=== PATIENT | female | born 1995 | race Caucasian/White ===

== ENCOUNTER 2019-06-25 18:25 | Emergency (ER) | payer OTHER, BC, SELFPAY ==
[2019-06-25 18:35] VITALS: BP 131/64; PULSE 91; RESP 16; TEMP 36.9; O2SAT 99
--- NOTE | 2019-06-25 20:02 | ED.ABDPAIN ---
HPI - Abdominal Pain General Chief Complaint: Abdominal Pain Stated Complaint: Abd pain/nausea/diarrhea Time Seen by Provider: 06/25/19 20:03 Source: patient and RN notes reviewed Mode of arrival: ambulatory Limitations: no limitations History of Present Illness HPI narrative: 23 year old female who presents to [facility] with complaints of nausea, vomiting, diarrhea, and abdominal pain since Tuesday. Patient states that diarrhea has resolved and she just has cramping sensation to mid abdomen region now but continues to have nausea, decrease in appetite, and some dizziness. Patient also states some cold symptoms of nasal drainage and mild cough, denies any recent fever chills or sweats, has taken some Tylenol for her generalized aching feeling. Decline offer of flu swab. MD elicited complaint: abdominal pain Pertinent past history: none Onset (ago): day(s) (4) Pain Consistency: intermittent Location: diffuse (mid abdomen) Severity: moderate Pain scale (0-10): 6 Quality: cramping and aching (generalized) Radiation: none and epigastric (mid) Migration to: no migration Exacerbating factors: eating Relieving factors: nothing Associated symptoms: nausea, vomiting, diarrhea, anorexia and other (dizzy) Treatments prior to arrival: other (Tylenol) Related Data Hx Last Menstrual Period: IUD Patient : No Home Medications Medication Instructions Recorded Confirmed levonorgestrel [Mirena] 1 device INTRAUTERINE ONCE 06/11/19 06/11/19 Allergies Allergy/AdvReac Type Severity Reaction Status Date / Time amoxicillin Allergy Unknown Skin Verified 07/22/17 21:20 Reaction ibuprofen Allergy Unknown Skin Verified 07/22/17 21:20 Reaction nickel Allergy Unknown Skin Verified 07/22/17 21:20 Reaction Review of Systems Review of Systems: Narrative: CONSTITUTIONAL:Low grade fevers chills, or sweats. EYES: Denies visual changes, redness, or discharge. ENT: positive rhinorrhea, congestion, no sore throat, or otalgia. CARDIOVASCULAR: Denies chest pain, palpitations, or edema. RESPIRATORY: positive cough no dyspnea. GASTROINTESTINAL: Positive mid abdominal pain, nausea, vomiting, or diarrhea. GENITOURINARY: Denies dysuria or hematuria. SKIN: Denies rash or itching. MUSCULOSKELETAL: Denies back pain, joint pain,positive for body aches NEUROLOGIC: Denies headache, numbness, or weakness.some dizziness PSYCHIATRIC: Denies anxiety or depression. PMFSH Surgical History Surgical History (Updated 06/29/19 @ 12:08 by Lucero Mukherjee NP) History of appendectomy History of tonsillectomy Family History Family History Father Hypertension Mother Hypertension Grandparent Family history of Parkinson's disease Carcinoma of colon Other Diabetes mellitus Family history of cardiovascular disease Social History Social History Smoking status: Smoker, status unknown Alcohol intake: never Comments At time of signature, agree with nursing past medical, surgical, social and family history. There is no relevant family history pertinent to the presenting complaint Exam Narrative: Exam Narrative: GENERAL: Well-appearing, well-nourished, and in no acute distress. HEAD: Normocephalic, atraumatic. EYES: PERRLA and EOMI. ENT: Nares light red clear rhinorrhea no epistaxis. Mucous membranes moist.TM's normal with good light reflex, throat pink with no swelling or exudate NECK: Supple.no lymphadenopathy CHEST: Clear to auscultation. No respiratory distress.dry cough SAO2 99% on room air. HEART: Regular rate and rhythm. No murmur heard. Normal peripheral pulses. ABDOMEN: Soft, nontender to palpation no migration of pain, nondistended, normal active bowel sounds. EXTREMITIES: Normal range of motion. No edema. SKIN: Warm, dry, no rash. NEURO: No focal deficits. Alert and oriented x3. Course Vital Signs Vital signs:
== END 2019-06-25 20:22 | disposition home or self-care (01) ==
PROVIDERS: Emergency Provider Registered Nurse
DX: K52.9 Noninfective gastroenteritis and colitis, unspecified (principal); B34.9 Viral infection, unspecified
CPT/HCPCS: 99213; G0463

== ENCOUNTER → 2020-11-14 11:03 | Outpatient (CLI) | payer MEDICAID, SELFPAY ==
[2020-11-14 19:12] LABS: SARS-CoV-2 RNA PCR Negative
== END ==
PROVIDERS: PCP Family Medicine; Visit Provider Physician Assistant
DX: Z20.822 Contact with and (suspected) exposure to COVID-19 (principal); R05 Cough
CPT/HCPCS: C9803; U0003; U0005

== ENCOUNTER 2020-11-24 15:44 | Emergency (ER) | payer MEDICAID, SELFPAY ==
[2020-11-24 16:46] VITALS: BP 105/85; PULSE 94; RESP 18; TEMP 36.3; O2SAT 100
[2020-11-24 20:06] VITALS: BP 138/72; PULSE 60; RESP 18
--- NOTE | 2020-11-24 20:30 | ED.GENADULT ---
HPI - General Adult General Chief complaint: Unspecified Stated complaint: feels sick for 2 weeks. Covid tested negative. Time Seen by Provider: 11/24/20 19:42 Source: patient, RN notes reviewed and old records reviewed Mode of arrival: ambulatory Limitations: no limitations History of Present Illness HPI narrative: Patient is a 24-year-old female who presents to emergency department for evaluation of congestion sore throat ear pain that has been present now for 3 weeks patient saw primary care for this and was placed on 10 days of doxycycline still has 5 days left had outpatient blood work by primary care which was unremarkable also had a negative Covid test. Patient continues to have fatigue and sore throat and ear pain is her primary symptoms. Denies any vomiting diarrhea urinary symptoms or vaginal complaints. Has been taking Tylenol and doxycycline no other medications. Denies sick contacts. Presents in no distress. Related Data Home Medications Medication Instructions Recorded Confirmed levonorgestrel [Mirena] 1 device INTRAUTERINE ONCE 06/11/19 11/14/20 Allergies Allergy/AdvReac Type Severity Reaction Status Date / Time amoxicillin Allergy Unknown Skin Verified 11/14/20 09:52 Reaction ibuprofen Allergy Unknown Skin Verified 11/14/20 09:52 Reaction nickel Allergy Unknown Skin Verified 11/14/20 09:52 Reaction Review of Systems Review of Systems: All systems reviewed & are unremarkable except as noted in HPI and below PMFSH Surgical History Surgical History History of appendectomy History of tonsillectomy Family History Family History Father Hypertension Mother Hypertension Grandparent Family history of Parkinson's disease Carcinoma of colon Other Diabetes mellitus Family history of cardiovascular disease Social History Social History Smoking status: Current every day smoker Alcohol intake: never Gender identity (if verbalized by the patient): Female Exam Narrative: Exam Narrative: GENERAL: Well-appearing, well-nourished, and in no acute distress. HEAD: Normocephalic, atraumatic. EYES: PERRLA and EOMI. ENT: Nares clear, no rhinorrhea or epistaxis. Mucous membranes moist. Oropharynx without tonsillar hypertrophy exudate or other lesions. Right TM nonbulging nonerythematous there is cerumen in the canal. Left TM normal nonerythematous nonbulging NECK: Supple. No adenopathy or masses. CHEST: Clear to auscultation. No respiratory distress. No wheezes rales or rhonchi HEART: Regular rate and rhythm. No murmur heard. EXTREMITIES: Normal range of motion. No edema. SKIN: Warm, dry, no rash. NEURO: No focal deficits. Alert and oriented x3. Cranial nerves II through XII grossly intact PSYCH: Normal mood and affect. Course Course Emergency Course: Patient seen in the emergency department nonill appearing nontoxic no emesis no distress will be discharged with outpatient follow-up with primary care for reevaluation provided with reasons to return and felt appropriate for outpatient reevaluation patient agreeing with this plan Vital Signs Vital signs: Vital Signs Temperature 97.4 F L 11/24/20 16:46 Pulse Rate 94 11/24/20 16:46 Respiratory Rate 18 11/24/20 16:46 Blood Pressure 105/85 11/24/20 16:46 Pulse Oximetry 100 11/24/20 16:46 Temperature 97.4 F L 11/24/20 16:46 Pulse Rate 60 11/24/20 20:06 Respiratory Rate 18 11/24/20 20:06 Blood Pressure 138/72 11/24/20 20:06 Pulse Oximetry 100 11/24/20 16:46 Medical Decision Making MDM Narrative Medical decision making narrative: Patient with primarily upper respiratory symptoms nontoxic-appearing no distress felt appropriate for outpatient reevaluation agreeing to follow-up as instructed felt appropriate for outpatient reev
[2020-11-24 21:21] LABS: Add Urine Microscopic? YES; Appearance Urine Clear (Clear); Bilirubin Urine Negative (Negative); Blood Urine 2+ (Negative); Color Urine Yellow (Yellow); Glucose Urine UA Negative (Negative); Ketones Urine Negative (Negative); Leukocyte Esterase Ur Negative LEU/UL (Negative); Mucus Urine Few /lpf; Nitrate Urine Negative (Negative); Protein Urine 1+ mg/dL (Negative); RBC Urine 0-2 /hpf (0-2); Squamous Epithelial Cell Urine Occasional /hpf (Few); WBC Urine 0-3 /hpf
[2020-11-24 21:32] LABS: Monoscreen Negative (Negative); Negative Monotest Control Negative (Negative); Positive Monotest Control Positive (Positive)
[2020-11-24 21:33] VITALS: BP 122/78; PULSE 80; RESP 20; O2SAT 99
== END 2020-11-24 21:34 | disposition home or self-care (01) ==
PROVIDERS: Emergency Medicine Emergency Medical Services; Emergency Provider Family Medicine; PCP Family Medicine
DX: J06.9 Acute upper respiratory infection, unspecified (principal); F17.200 Nicotine dependence, unspecified, uncomplicated
CPT/HCPCS: 36415; 81001; 81025; 86308; 87081; 87880; 99283

== ENCOUNTER 2022-01-10 11:12 | Emergency (ER) | payer OTHER, SELFPAY ==
[2022-01-10 11:22] VITALS: BP 138/83; PULSE 73; RESP 16; TEMP 37.4; O2SAT 99
--- NOTE | 2022-01-10 11:33 | ED.URI ---
HPI - URI/Sore Throat General Chief Complaint: Upper Respiratory Infection Stated Complaint: Cough,Congestion Time Seen by Provider: 01/10/22 11:33 Source: patient Mode of arrival: ambulatory Limitations: no limitations History of Present Illness HPI Narrative: 26-year-old female presents with complaint of nasal congestion, pain to bilateral ears, sore throat, cough for 4 days. Reports head feels like it is underwater . Afebrile. Taking [id number] sinus medication with no relief. Did a rapid PCR COVID test with [facility] yesterday and it was negative. Denies chest pain and shortness of breath. All systems reviewed and negative except as noted above. Related Data Home Medications Medication Instructions Recorded Confirmed levonorgestrel 20 mcg/24 hours (7 1 device intrauterine ONCE 06/11/19 01/10/22 yrs) 52 mg intrauterine device (Mirena) Allergies Allergy/AdvReac Type Severity Reaction Status Date / Time amoxicillin Allergy Unknown Skin Verified 01/10/22 11:18 Reaction ibuprofen Allergy Unknown Skin Verified 01/10/22 11:18 Reaction nickel Allergy Unknown Skin Verified 01/10/22 11:18 Reaction Review of Systems Review of Systems: CONSTITUTIONAL: Denies fever, chills, or sweats. EYES: Denies visual changes, redness, or discharge. ENT: Reports rhinorrhea, congestion, sore throat and otalgia. CARDIOVASCULAR: Denies chest pain, palpitations, or edema. RESPIRATORY: Reports cough. Denies dyspnea. GASTROINTESTINAL: Denies abdominal pain, nausea, vomiting, or diarrhea. GENITOURINARY: Denies dysuria or hematuria. SKIN: Denies rash or itching. MUSCULOSKELETAL: Denies back pain, joint pain, or myalgia. NEUROLOGIC: Denies headache, numbness, or weakness. PSYCHIATRIC: Denies anxiety or depression. All other systems reviewed are negative, except as documented in HPI. [facility] Past Medical History Medical History (Updated 01/10/22 @ 11:49 by Candace Esteban NP) Allergic rhinitis, cause unspecified Nicotine dependence, unspecified, uncomplicated Other acute appendicitis without perforation or gangrene Surgical History Surgical History History of appendectomy History of tonsillectomy Family History Family History Father Hypertension Mother Hypertension Grandparent Family history of Parkinson's disease Carcinoma of colon Other Diabetes mellitus Family history of cardiovascular disease Social History Social History (Updated 12/26/20 @ 11:17 by Jo Gipson [facility]) Alcohol intake: never Gender identity (if verbalized by the patient): Female Comments At time of signature, agree with nursing past medical, surgical, social and family history. There is no relevant family history pertinent to the presenting complaint. Exam Narrative: GENERAL: This is a well-nourished, well-developed patient, in no apparent distress. HEAD: normocephalic, atraumatic. EYES: PERRL. Sclera clear/white. Vision is grossly intact. EARS: External ears normal, auditory canals clear and without drainage, erythema and purulent fluid to right TM. Left TM is normal. No perforation. NOSE: External nose normal with clear nasal drainage. No erythema or swelling to nares. THROAT: Mucous membranes moist, clear postnasal drainage. NECK: Neck supple, non-tender without lymphadenopathy, masses or thyromegaly. CARDIOVASCULAR: Regular rate and rhythm without murmurs, gallops, or rubs. RESPIRATORY: Clear to auscultation. Breath sounds equal bilaterally. No wheezes, rales, or rhonchi. SKIN: warm, Dry, intact with no suspicious lesions or rash, good texture and turgor. NEURO: awake, alert, and oriented to person, place and time. There were no obvious focal neurologic abnormalities. EXTREMITIES: No joint tenderness, effusion, or edema noted. Course Course Level of Care: Express Care Visit
== END 2022-01-10 11:57 | disposition home or self-care (01) ==
PROVIDERS: Emergency Provider Nurse Practitioner Family; PCP Family Medicine
DX: J06.9 Acute upper respiratory infection, unspecified (principal); H66.91 Otitis media, unspecified, right ear; F17.200 Nicotine dependence, unspecified, uncomplicated
CPT/HCPCS: 99213; G0463

== ENCOUNTER 2022-01-12 09:27 | Emergency (ER) | payer OTHER, SELFPAY ==
--- NOTE | ~2022-01-12 | XR_ITS ---
EXAMINATION: XR chest 2V DATE: 01/12/2022 10:12 INDICATION: Shortness of breath and cough TECHNIQUE: PA and lateral views of the chest are obtained. COMPARISON: 08/25/2018 FINDINGS: The lungs are free of acute opacities. There is no pleural effusion or pneumothorax. The ca rdiomediastinal silhouette is normal. The visualized bones and soft tissues are unremarkable. IMPRESSION: 1. No acute cardiopulmonary abnormality. Reviewed, dictated and finalized at location A.
[2022-01-12 09:34] VITALS: BP 137/88; PULSE 90; RESP 15; TEMP 36.6; O2SAT 99
[2022-01-12 09:35] VITALS: PULSE 86; RESP 20; O2SAT 98
[2022-01-12 09:45] VITALS: PULSE 68; RESP 17; O2SAT 99
[2022-01-12 09:46] VITALS: BP 128/92; PULSE 68; RESP 21; O2SAT 100
[2022-01-12 09:53] VITALS: O2SAT 99
--- NOTE | 2022-01-12 10:04 | ED.URI ---
HPI - URI/Sore Throat General Chief Complaint: Upper Respiratory Infection Stated Complaint: diarrhea, cough, head congestion Time Seen by Provider: 01/12/22 09:54 History of Present Illness HPI Narrative: Patient is a 26-year-old female here for evaluation of a productive cough, congestion, sore throat, ear congestion/pain for the past 4 days. Has been trying prednisone, cough syrup and has been on abx prescribed by an urgent care without much relief of her symptoms. Patient additionally reports 2-3 episodes of loose stools per day, but no abdominal pain or nausea. No fevers, chills, leg swelling, history of DVT. Patient states that upon symptom onset she was tested at a rapid COVID facility and tested negative. Related Data Home Medications Medication Instructions Recorded Confirmed levonorgestrel 20 mcg/24 hours (7 1 device intrauterine ONCE 06/11/19 01/10/22 yrs) 52 mg intrauterine device (Mirena) Allergies Allergy/AdvReac Type Severity Reaction Status Date / Time amoxicillin Allergy Unknown Skin Verified 01/12/22 09:40 Reaction nickel Allergy Unknown Skin Verified 01/12/22 09:40 Reaction Review of Systems Review of Systems: Gen.: Denies fevers or chills Eyes: Denies eye pain or visual change ENT: Reports congestion and ear pain Respiratory: Reports shortness of breath and cough. CV: Denies chest pain or palpitations GI: Denies abdominal pain nausea, emesis or diarrhea : denies burning, urgency, frequency or hematuria Musculoskeletal: Denies back pain or muscle pain Neuro: Denies numbness, tingling, weakness or focal weakness Skin: Denies rash Except as documented, all other systems reviewed and negative [facility] Past Medical History Medical History (Updated 01/12/22 @ 10:51 by Lourdes Damian PA-C) Allergic rhinitis, cause unspecified Nicotine dependence, unspecified, uncomplicated Other acute appendicitis without perforation or gangrene Surgical History Surgical History History of appendectomy History of tonsillectomy Family History Family History Father Hypertension Mother Hypertension Grandparent Family history of Parkinson's disease Carcinoma of colon Other Diabetes mellitus Family history of cardiovascular disease Social History Social History (Updated 12/26/20 @ 11:17 by Jo Gipson [facility]) Alcohol intake: never Gender identity (if verbalized by the patient): Female Exam Narrative: APPEARANCE: Well appearing, no pain in distress, well-nourished. Head: Normocephalic and atraumatic. EYES: PERRLA/EOMI, conjunctivae clear NOSE: No nasal drainage EARS: R TM is cloudy. External ear normal in appearance THROAT: Oropharynx is clear. No exudates, no tonsillar swelling. Mucous membranes are moist. NECK: Tender, submandibular lymphadenopathy. Supple. RESPIRATORY: Inspiratory wheezes in right lower lung. Airway patent, respirations nonlabored. No rales, rhonchi. CARDIOVASCULAR: Regular rate and rhythm without murmurs, rubs, or gallops. ABDOMINAL: Normoactive bowel sounds. Soft, nontender, nondistended. No rebound tenderness or guarding. MUSCULOSKELETAL: Extremities are warm and well-perfused. Moves all extremities well. No edema. NEURO: Normal speech. No focal neurologic deficits. SKIN: Skin is warm and dry. No rashes. PSYCHIATRIC: Normal affect/mood. Course Vital Signs Vital signs: Vital Signs Temperature 97.8 F 01/12/22 09:34 Pulse Rate 90 01/12/22 09:34 Respiratory Rate 15 01/12/22 09:34 Blood Pressure 137/88 01/12/22 09:34 Pulse Oximetry 99 01/12/22 09:34 Oxygen Delivery Room Air 01/12/22 09:34 Temperature 97.8 F 01/12/22 09:34 Pulse Rate 72 01/12/22 10:59 Respiratory Rate 18 01/12/22 10:59 Blood Pressure 121/79 01/12/22 10:59 Pulse Oximetry 99 01/12/22 10:59 Oxygen Delivery Room Air
--- NOTE | 2022-01-12 10:10 | PC.NURSE ---
Patient off unit to radiology
[2022-01-12 10:47] LABS: SARS-CoV-2 RNA PCR Negative
[2022-01-12 10:59] VITALS: BP 121/79; PULSE 72; RESP 18; O2SAT 99
== END 2022-01-12 11:00 | disposition home or self-care (01) ==
PROVIDERS: Physician Assistant; Emergency Provider Emergency Medicine; PCP Family Medicine
DX: J06.9 Acute upper respiratory infection, unspecified (principal); Z20.822 Contact with and (suspected) exposure to COVID-19; F17.200 Nicotine dependence, unspecified, uncomplicated
CPT/HCPCS: 71046; 99283; C9803; U0003; U0005

== ENCOUNTER 2023-03-15 12:49 | Emergency (ER) | payer SELFPAY ==
[2023-03-15 13:09] VITALS: BP 130/91; PULSE 80; RESP 16; TEMP 37.1; O2SAT 100
--- NOTE | 2023-03-15 13:19 | ED.GENADULT ---
HPI - General Adult General Chief complaint: Upper Respiratory Infection Stated complaint: Sinus Source: patient Mode of arrival: ambulatory Limitations: no limitations History of Present Illness HPI narrative: Patient presents for evaluation of sick symptoms since yesterday. Symptoms include sinus congestion, thick green drainage from the nares, a tickle in the back the throat , subjective fever, chills, nausea, vomiting, nonproductive cough and mild shortness of breath. 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 No history of COVID. She does use electronic cigarette. She has been taking Tylenol and rnei-[id number] cough and cold medicine with some improvement thereafter. Related Data Allergies Allergy/AdvReac Type Severity Reaction Status Date / Time amoxicillin Allergy Unknown Skin Verified 03/15/23 13:17 Reaction nickel Allergy Unknown Skin Verified 03/15/23 13:17 Reaction Review of Systems Review of Systems: CONSTITUTIONAL: Reports subjective fever and chills. EYES: Denies visual changes, redness, or discharge. ENT: Reports sinus congestion, mucopurulent discharge from the nares, a tickle in the back of the throat CARDIOVASCULAR: Denies chest pain, palpitations, or edema. RESPIRATORY: reports cough mild shortness of breath. GASTROINTESTINAL: Reports nausea and vomiting. Denies abdominal pain,, or diarrhea. GENITOURINARY: Denies dysuria or hematuria. SKIN: Denies rash or itching. MUSCULOSKELETAL: Denies back pain, joint pain, or myalgia. NEUROLOGIC: Denies headache, numbness, dizziness, or weakness. PSYCHIATRIC: Denies anxiety or depression. [facility] Past Medical History Medical History Allergic rhinitis, cause unspecified Nicotine dependence, unspecified, uncomplicated Other acute appendicitis without perforation or gangrene Surgical History Surgical History History of appendectomy History of tonsillectomy Family History Family History Father Hypertension Mother Hypertension Grandparent Family history of Parkinson's disease Carcinoma of colon Other Diabetes mellitus Family history of cardiovascular disease Social History Social History (Updated 03/15/23 @ 13:23 by Mihai Martin, [facility], ) Smoking status: Current every day smoker Tobacco type: e-cigarettes/vaping Alcohol intake: never Living arrangements: with family Additional occupation/education comments: Supervisor [employer] Gender identity (if verbalized by the patient): Female Exam Narrative: GENERAL: Well-appearing, well-nourished, and in no acute distress. HEAD: Normocephalic, atraumatic. EYES: PERRLA and EOMI. ENT: Nares clear, no rhinorrhea or epistaxis. Mucous membranes moist. Oropharynx without tonsillar hypertrophy exudate or other lesions. Bilateral TMs pearly zuniga nonbulging NECK: Supple. No adenopathy or masses. No carotid bruits or JVD CHEST: Clear to auscultation. No respiratory distress. No wheezes rales or rhonchi HEART: Regular rate and rhythm. No murmur heard. Normal peripheral pulses. ABDOMEN: Soft, nontender, nondistended, normal active bowel sounds. EXTREMITIES: Normal range of motion. No edema. SKIN: Warm, dry, no rash. NEURO: No focal deficits. Alert and oriented x3. PSYCH: Normal mood and affect. Course Course Emergency Course: this is a 27-year-old female who presented for evaluation of sick symptoms. COVID here positive. Recommended he increase hydration [id number] agents for symptom management. She is not hypoxic. She appears well clinically. Follow-up with primary provider. Quarantine in alignment with CDC recommendations. Go to the emergency department for shortness of breath or worsening symptoms. [place]
== END 2023-03-15 14:03 | disposition home or self-care (01) ==
PROVIDERS: Emergency Provider Nurse Practitioner; PCP Family Medicine
DX: U07.1 COVID-19 (principal); F17.290 Nicotine dependence, other tobacco product, uncomplicated
CPT/HCPCS: 87426; 87804; 99213; C9803; G0463